=== PATIENT | female | born 1955 | race Caucasian/White ===

== ENCOUNTER 2016-09-16 11:44 | Emergency (ER) | payer OTHER ==
[~2016-09-16] VITALS: Wt 89.0 kg
[2016-09-16] MEDS ORDERED: HYDROCODONE/APAP (5/325) TAB PO ONE (12:30)
--- NOTE | 2016-09-16 12:50 | RADRPT ---
PROCEDURE: XR Chest. CLINICAL INDICATION: Cough TECHNIQUE: Chest PA. COMPARISON: No comparison available. FINDINGS: The mediastinal structures are unremarkable. The heart is normal in size and configuration. The pu lmonary vascularity is normal. There is bibasilar subsegmental atelectasis / patchy consolidations. The pleural spaces are unremarkable. The axial skeleton is unremarkable. IMPRESSION: Mild bibasilar subsegmental atelectasis / patchy consolidations RPTAT: HGDB .Ricardo Pride MD, Date Time Electronically viewed and signed by .Ricardo Pride MD, on 09/16/2016 12:49 .B/
[2016-09-16] MEDS ORDERED: CEFTRIAXONE 1 GM INJ IM ONE (13:30)
[2016-09-16] MEDS ORDERED: LIDOCAINE 1% (MDV) 20 ML INJ IM ONE (13:30)
[2016-09-16] MEDS ORDERED: HYDR-906 PO (13:46)
[2016-09-16] MEDS ORDERED: AMOX1TAB10 PO (13:46)
[2016-09-16] MEDS ORDERED: AZIT250T94 PO (13:52)
--- NOTE | 2016-09-16 13:56 | ERD ---
ER Documentation Chief Complaint Date/Time DATE: 09/16/16 TIME: 13:55 Chief Complaint flu like smptoms for the past 8 days. no releif HPI 61-year-old female comes in with cough congestion for the past 8 days. This patient has been taking [id number] cough medicine as well as Tylenol as well as Motrin for pain. She is now developed pain in the center of her chest each time she takes a deep breath in or out. She denies any shortness of breath. Initially she had a fever 102 that has resolved. ROS All systems reviewed and are negative except as per history of present illness. Medications Home Meds Active Scripts Azithromycin* (Zithromax*) 250 Mg Tablet, 250 MG PO .ZPACK DIRECTED, #6 TAB TAKE 500 MG (2 TABS) THE FIRST DAY THEN 250 MG (1 TAB) DAYS 2-5 Prov:BILL CHEATHAM PA-C 09/16/16 Hydrocodone/Acetaminophen ([place] 5-325 Tablet) 1 Each Tablet, 1 TAB PO Q6H Y for PAIN, #15 TAB Prov:BILL CHEATHAM PA-C 09/16/16 Allergies Allergies: Coded Allergies: No Known Allergy (Unverified , 09/16/16) PMhx/Soc Medical and Surgical Hx: pt denies Medical Hx History of Surgery: Yes (C/S X3, OOECTOMY X1 (PT DOES NOT RECALL RT OR LT)) Anesthesia Reaction: No Hx Neurological Disorder: No Hx Respiratory Disorders: No Hx Cardiac Disorders: No Hx Psychiatric Problems: No Hx Miscellaneous Medical Probl: No Hx Alcohol Use: No Hx Substance Use: No Hx Tobacco Use: No Smoking Status: Never smoker Physical Exam Vitals Vital Signs Date Time Temp Pulse Resp B/P Pulse Ox O2 Delivery O2 Flow Rate FiO2 09/16/16 11:51 98.0 69 20 131/68 99 Physical Exam General: Well-developed, well-nourished. The patient appears in no acute distress. HEENT: Head is normocephalic, atraumatic. No scleral icterus. Pupils are equal , round, and reactive. Oral mucous membranes are moist. No pharyngeal erythema. Neck: Supple. Nontender. Lungs: Clear to auscultation. Normal air movement. Heart: Regular rate and rhythm. S1 and S2 are normal. No murmurs, gallops, or rubs. Abdomen: Soft, nontender, nondistended. Bowel sounds are normoactive. Extremities: No clubbing or cyanosis. Normal pulses. Moving extremities x 4. No weakness. Neurologic: Alert and oriented 3. No focal deficits. Skin: Normal turgor. No rash or lesions. Results 24 hrs Current Medications Medications (Trade) Dose Ordered Sig/Denice Route PRN Reason Start Time Stop Time Status Last Admin Dose Admin Acetaminophen/ Hydrocodone Bitart ([place] (5/325)) 1 tab ONCE ONCE PO 09/16/16 12:30 09/16/16 13:52 DC 09/16/16 12:35 Ceftriaxone Sodium (Rocephin) 1 gm ONCE ONCE IM 09/16/16 13:30 09/16/16 13:53 DC 09/16/16 13:47 Lidocaine (Xylocaine 1% (Mdv) 20 ml) 2 ml ONCE ONCE IM 09/16/16 13:30 09/16/16 13:53 DC 09/16/16 13:47 PROCEDURE: XR Chest. CLINICAL INDICATION: Cough TECHNIQUE: Chest PA. COMPARISON: No comparison available. FINDINGS: The mediastinal structures are unremarkable. The heart is normal in size and configuration. The pulmonary vascularity is normal. There is bibasilar subsegmental atelectasis / patchy consolidations. The pleural spaces are unremarkable. The axial skeleton is unremarkable. IMPRESSION: Mild bibasilar subsegmental atelectasis / patchy consolidations RPTAT: HGDB .Ricardo Pride MD, MD Date Time Electronically viewed and signed by .Ricardo Pride MD, on 09/16/2016 12:49 .B/ Procedures/MDM The patient is a 61-year-old female who comes in with evidence of pneumonia on the chest x-ray. She was given Rocephin 1 g IM. No evidence of sepsis, SIRS criteria evidence of hypoxia. Patient is appropriate for outpatient management on oral antibiotics. The patient has a differential diagnosis of a viral upper respiratory infection, bacterial upper respiratory infection, bronchitis, pneumonia, pharyngitis, laryngitis, epiglottitis, croup, pneumonia. Patient has a normal pulmonary examination, clear breath sounds, normal pulse oximetry, with no corrective measures needed at this time. Fluids, rest, antipyretics were encouraged. Departure Diagnosis: Primary Impression: Pneumonia Condition: Good Patient Instructions: Pneumonia Additional Instructions: Llame al doctor MAANA y bin nanette LYNNE PARA DENTRO DE 1-2 DAN.Dgale a la secretaria que nosotros le instruimos hacer esta lynne.Avise o llame si edge condicin se empeora antes de la lynne. Regresa aqui si peor o no mejor. BILL CHEATHAM PA-C Sep 16, 2016 13:56
== END 2016-09-16 14:17 | disposition home or self-care (01) ==
LOC: FTE 11:44
DX: J18.9 Pneumonia, unspecified organism (principal)
CPT/HCPCS: 71010; J0696; Z7610; 96372